=== PATIENT | female | born 1960 | race Caucasian/White ===

== ENCOUNTER 2017-02-26 08:00 | Emergency (ER) | payer OTHER ==
[~2017-02-26] VITALS: Ht 157.5 cm; Wt 106.8 kg
[2017-02-26 08:00] VITALS: BP 158/87; PULSE 60; RESP 16; O2SAT 97
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
[2017-02-26 09:50] VITALS: BP 139/77; PULSE 79; RESP 12; O2SAT 97
[2017-02-26 10:09] VITALS: BP 139/77; PULSE 79; RESP 12; O2SAT 97
== END 2017-02-26 10:07 | disposition home or self-care (01) ==
LOC: SED 08:00
DX: S16.1XXA Strain of muscle, fascia and tendon at neck level, initial encounter (principal); R56.9 Unspecified convulsions; F41.9 Anxiety disorder, unspecified; V43.52XA Car driver injured in collision with other type car in traffic accident, initial encounter; Y93.9 Activity, unspecified; Y92.410 Unspecified street and highway as the place of occurrence of the external cause; Y99.8 Other external cause status; Z88.1 Allergy status to other antibiotic agents
CPT/HCPCS: 96374; 96375; 99284; J1885; J2060